=== PATIENT | male | born 1975 | race Hispanic/Latino ===

== ENCOUNTER 2021-07-27 18:39 | Emergency (ER) | payer SELFPAY ==
[~2021-07-27] VITALS: Ht 172.7 cm; Wt 102.1 kg
[2021-07-27] MEDS ORDERED: SODIUM CHLORIDE 0.9% 1000ML 1,000 ML IV ONE (19:45)
[2021-07-27] MEDS ORDERED: KETOROLAC TROMETHAMINE 30 MG/ML VIAL IV STA (19:51)
[2021-07-27 20:00] LABS: BASOPHILS # (AUTO) 0.1 (0.0-0.1); BASOPHILS % 0.4 % (0.0-1.0); EOSINOPHILS # (AUTO) 0.2 (0.0-0.4); EOSINOPHILS % 1.1 % (0.0-6.0); HEMATOCRIT 40.9 % (38.2-49.6); HEMOGLOBIN 13.8 g/dL (14.0-18.0); LYMPHOCYTES # (AUTO) 2.6 (1.0-3.2); LYMPHOCYTES % 16.5 % (18.0-39.1); MEAN CORPUSCULAR HGB CONC 33.7 g/dL (31-35); MEAN CORPUSCULAR VOLUME 88.9 fL (81-99); MONOCYTES # (AUTO) 1.3 (0.2-0.8); NEUTROPHILS # (AUTO) 11.6 (2.1-6.9); NEUTROPHILS % 73.4 % (38.7-80.0); PLATELET COUNT 288 x10e3/uL (140-360); RED CELL DISTRIBUTION WIDTH 12.7 % (11.7-14.4)
[2021-07-27 20:21] LABS: ALBUMIN 3.4 g/dL (3.5-5.0); ALBUMIN/GLOBULIN RATIO 0.7 (0.8-2.0); ANION GAP 12.4 mmol/L (8-16); CREATININE, SERUM 0.89 mg/dL (0.72-1.25); POTASSIUM 3.4 mmol/L (3.5-5.1)
[2021-07-27 21:01] LABS: CLARITY,URINE CLEAR (CLEAR); COLOR,URINE YELLOW (YELLOW); KETONES,URINE NEGATIVE (NEGATIVE); LEUKOCYTE ESTERASE ,URINE NEGATIVE (NEGATIVE); NITRITE,URINE NEGATIVE (NEGATIVE); PROTEIN,URINE DIPSTICK TRACE (NEGATIVE); URINE UROBILINOGEN 0.2 mg/dL (0.2 - 1)
[2021-07-27 21:14] LABS: BACTERIA,URINE RARE /HPF; EPITHELIAL CELLS,URINE FEW /LPF; MUCUS,URINE MANY (RARE); RBC,URINE 0-5 /HPF (0-5)
[2021-07-27] MEDS ORDERED: IOPAMIDOL 370 MG/ML 100 ML INFUS..BTL INJ ONE (21:36)
[2021-07-27 23:32] VITALS: BP 126/86
== END 2021-07-27 23:15 | disposition home or self-care (01) ==
LOC: ER 18:50
DX: M54.50 Low back pain, unspecified (principal); J18.9 Pneumonia, unspecified organism; J90 Pleural effusion, not elsewhere classified; K76.0 Fatty (change of) liver, not elsewhere classified; R91.8 Other nonspecific abnormal finding of lung field
CPT/HCPCS: 36415; 71260; 74176; 80053; 81001; 85025; 99284; J1885; J7030; Q9967

== ENCOUNTER 2021-07-29 11:17 | Inpatient (IN) | payer SELFPAY ==
[~2021-07-29] VITALS: Ht 172.7 cm; Wt 101.2 kg
[2021-07-29] MEDS ORDERED: Vancomycin IV 1 GM in SODIUM CHLORIDE 0.9% 250ML 250 ML IV STA (11:27)
[2021-07-29] MEDS ORDERED: SODIUM CHLORIDE 0.9% 500ML 500 ML IV STA (11:28)
[2021-07-29] MEDS ORDERED: KETOROLAC TROMETHAMINE 30 MG/ML VIAL IV STA (11:29)
[2021-07-29] MEDS ORDERED: SODIUM CHLORIDE 0.9% 1000ML 1,000 ML IV SCH ×3 (11:30→12:00)
[2021-07-29] MEDS ORDERED: ACETAMINOPHEN 325 MG TAB PO ONE (11:30)
[2021-07-29 11:39] LABS: BASOPHILS # (AUTO) 0.1 (0.0-0.1); BASOPHILS % 0.2 % (0.0-1.0); EOSINOPHILS # (AUTO) 0.1 (0.0-0.4); EOSINOPHILS % 0.3 % (0.0-6.0); HEMATOCRIT 44.5 % (38.2-49.6); HEMOGLOBIN 14.9 g/dL (14.0-18.0); LYMPHOCYTES # (AUTO) 1.9 (1.0-3.2); LYMPHOCYTES % 5.8 % (18.0-39.1); MEAN CORPUSCULAR HEMOGLOBIN 30.2 pg (28-32); MEAN CORPUSCULAR HGB CONC 33.5 g/dL (31-35); MEAN CORPUSCULAR VOLUME 90.1 fL (81-99); MONOCYTES # (AUTO) 1.4 (0.2-0.8); MONOCYTES % 4.5 % (4.4-11.3); NEUTROPHILS # (AUTO) 28.4 (2.1-6.9); NEUTROPHILS % 88.3 % (38.7-80.0); PLATELET COUNT 342 x10e3/uL (140-360); RED BLOOD COUNT 4.94 x10e6/uL (4.3-5.7); RED CELL DISTRIBUTION WIDTH 12.9 % (11.7-14.4)
[2021-07-29 12:10] LABS: LYMPHOCYTES % (MANUAL) 3 % (19-48); METAMYELOCYTES % (MANUAL) 1 % (0-0); MONOCYTES % (MANUAL) 2 % (3.4-9.0); NEUTROPHILS % (MANUAL) 92 % (40-74); PLATELET ESTIMATE ADEQUATE; PLATELET MORPHOLOGY COMMENT NORMAL; RBC MORPHOLOGY COMMENT NORMAL
[2021-07-29 12:13] LABS: ALBUMIN 3.2 g/dL (3.5-5.0); ALBUMIN/GLOBULIN RATIO 0.6 (0.8-2.0); ANION GAP 17.7 mmol/L (8-16); CALCIUM 9.2 mg/dL (8.4-10.2); CREATININE, SERUM 0.97 mg/dL (0.72-1.25); POTASSIUM 3.7 mmol/L (3.5-5.1)
[2021-07-29 12:50] VITALS: BP 130/77
[2021-07-29] MEDS ORDERED: METOPROLOL TARTRATE INJ 1 MG/ML VIAL IV PRN (15:15)
[2021-07-29] MEDS ORDERED: ACETAMINOPHEN 325 MG TAB PO PRN (15:15)
[2021-07-29] MEDS ORDERED: POLYETHYLENE GLYCOL 3350 17 GM PACK PO PRN (15:15)
[2021-07-29 15:29] VITALS: BP 122/69
[2021-07-29] MEDS ORDERED: PIPERACILLIN/TAZOBACTAM 4.5 GM in SODIUM CHLORIDE 0.9% 100 ML IV SCH (17:00)
[2021-07-29] MEDS: DOCUSATE SODIUM 100 MG CAP PO SCH (17:41)
[2021-07-29] MEDS: LACTATED RINGER'S 1,000 ML INJ SCH (17:41)
[2021-07-29] MEDS: FAMOTIDINE 20 MG TAB PO SCH (17:41)
[2021-07-29 20:00] VITALS: BP 121/78
[2021-07-29] MEDS: Morphine 4mg INJECTION 4 MG/ML INJ IV PRN (20:50)
[2021-07-29 21:00] VITALS: BP 121/78
[2021-07-29] MEDS ORDERED: TEMAZEPAM 7.5 MG CAP PO PRN (21:00)
[2021-07-29 23:56] LABS: CLARITY,URINE CLEAR (CLEAR); COLOR,URINE ORANGE (YELLOW); KETONES,URINE 1+ (NEGATIVE); LEUKOCYTE ESTERASE ,URINE NEGATIVE (NEGATIVE); NITRITE,URINE NEGATIVE (NEGATIVE); PROTEIN,URINE DIPSTICK 2+ (NEGATIVE); URINE UROBILINOGEN 1 mg/dL (0.2 - 1)
[2021-07-30 00:21] VITALS: BP 138/87
[2021-07-30 00:21] LABS: BACTERIA,URINE FEW /HPF; EPITHELIAL CELLS,URINE FEW /LPF
[2021-07-30] MEDS: ACETAMINOPHEN 325 MG TAB PO PRN ×3 (01:02→16:46)
[2021-07-30] MEDS: LACTATED RINGER'S 1,000 ML INJ SCH (04:05)
[2021-07-30 05:34] VITALS: BP 127/82
[2021-07-30] MEDS: Morphine 4mg INJECTION 4 MG/ML INJ IV PRN ×3 (06:21→21:15)
[2021-07-30 07:34] VITALS: BP 146/76
[2021-07-30 07:55] LABS: BASOPHILS # (AUTO) 0.1 (0.0-0.1); BASOPHILS % 0.3 % (0.0-1.0); EOSINOPHILS # (AUTO) 0.2 (0.0-0.4); EOSINOPHILS % 0.8 % (0.0-6.0); HEMATOCRIT 39.9 % (38.2-49.6); HEMOGLOBIN 13.1 g/dL (14.0-18.0); LYMPHOCYTES # (AUTO) 1.3 (1.0-3.2); LYMPHOCYTES % 4.3 % (18.0-39.1); MEAN CORPUSCULAR HEMOGLOBIN 30.2 pg (28-32); MEAN CORPUSCULAR HGB CONC 32.8 g/dL (31-35); MEAN CORPUSCULAR VOLUME 91.9 fL (81-99); MONOCYTES % 6.5 % (4.4-11.3); NEUTROPHILS # (AUTO) 26.3 (2.1-6.9); NEUTROPHILS % 86.2 % (38.7-80.0); PLATELET COUNT 257 x10e3/uL (140-360); RED BLOOD COUNT 4.34 x10e6/uL (4.3-5.7); RED CELL DISTRIBUTION WIDTH 12.9 % (11.7-14.4)
[2021-07-30 08:00] VITALS: BP 146/76
[2021-07-30 08:25] LABS: POTASSIUM 3.8 mmol/L (3.5-5.1)
[2021-07-30 08:26] LABS: ANION GAP 14.8 mmol/L (8-16); CALCIUM 8.2 mg/dL (8.4-10.2); CREATININE, SERUM 0.79 mg/dL (0.72-1.25)
[2021-07-30] MEDS: FAMOTIDINE 20 MG TAB PO SCH ×2 (08:30→16:44)
[2021-07-30] MEDS: DOCUSATE SODIUM 100 MG CAP PO SCH ×2 (08:30→16:45)
[2021-07-30 08:42] LABS: CHOL/HDL RATIO 4.5 (3.9-4.7); MAGNESIUM 1.6 MG/DL (1.3-2.1); PHOSPHORUS 2.1 MG/DL (2.3-4.7)
[2021-07-30 09:01] LABS: THYROID STIMULATING HORMONE 0.528 uIU/mL (0.350-4.940)
[2021-07-30] MEDS: ONDANSETRON HCL INJ 2MG/ML 2ML 2 MG/ML VIAL IV PRN ×2 (10:35→21:15)
[2021-07-30 10:46] LABS: LYMPHOCYTES % (MANUAL) 7 % (19-48); MONOCYTES % (MANUAL) 5 % (3.4-9.0); NEUTROPHILS % (MANUAL) 88 % (40-74); PLATELET ESTIMATE ADEQUATE; PLATELET MORPHOLOGY COMMENT NORMAL; RBC MORPHOLOGY COMMENT NORMAL
[2021-07-30] MEDS ORDERED: IOPAMIDOL 370 MG/ML 100 ML INFUS..BTL INJ ONE (11:05)
[2021-07-30 15:36] VITALS: BP 163/84
[2021-07-30] MEDS ORDERED: METOPROLOL TARTRATE INJ 1 MG/ML VIAL IV PRN (16:30)
[2021-07-30] MEDS: D5.45%NS/KCL 20MEQ 1,000 ML IV SCH (16:44)
[2021-07-30] MEDS: BENZONATATE 100 MG CAP PO PRN (16:46)
[2021-07-30] MEDS ORDERED: MAGNESIUM SULFATE 2GM/50ML 50 ML IV ONE (19:15)
[2021-07-30] MEDS ORDERED: SODIUM PHOSPHATE IN 0.9 % NACL 15 MMOL in SODIUM CHLORIDE 0.9% 250ML 250 ML IV ONE ×4 (19:15→22:15)
[2021-07-30 20:00] VITALS: BP 149/82
[2021-07-30] MEDS ORDERED: SODIUM CHLORIDE 0.9% 250ML 250 ML ONE (20:19)
[2021-07-31] VITALS (8 sets, daily range): BP systolic 135–165; BP diastolic 65–95
[2021-07-31] MEDS: ONDANSETRON HCL INJ 2MG/ML 2ML 2 MG/ML VIAL IV PRN ×2 (02:00→22:45)
[2021-07-31] MEDS: Morphine 4mg INJECTION 4 MG/ML INJ IV PRN ×2 (02:00→22:45)
[2021-07-31] MEDS: BENZONATATE 100 MG CAP PO PRN ×3 (04:23→22:45)
[2021-07-31] MEDS: ACETAMINOPHEN 325 MG TAB PO PRN ×3 (04:23→18:20)
[2021-07-31 05:32] LABS: HEMATOCRIT 41.5 % (38.2-49.6); HEMOGLOBIN 13.5 g/dL (14.0-18.0); MEAN CORPUSCULAR HEMOGLOBIN 29.8 pg (28-32); MEAN CORPUSCULAR HGB CONC 32.5 g/dL (31-35); MEAN CORPUSCULAR VOLUME 91.6 fL (81-99); PLATELET COUNT 280 x10e3/uL (140-360); RED BLOOD COUNT 4.53 x10e6/uL (4.3-5.7); RED CELL DISTRIBUTION WIDTH 13.1 % (11.7-14.4)
[2021-07-31 05:51] LABS: ALBUMIN 2.5 g/dL (3.5-5.0); ALBUMIN/GLOBULIN RATIO 0.5 (0.8-2.0); ANION GAP 14.6 mmol/L (8-16); CALCIUM 8.3 mg/dL (8.4-10.2); CREATININE, SERUM 0.91 mg/dL (0.72-1.25); MAGNESIUM 2.1 MG/DL (1.3-2.1); PHOSPHORUS 1.9 MG/DL (2.3-4.7); POTASSIUM 3.6 mmol/L (3.5-5.1)
[2021-07-31] MEDS: FAMOTIDINE 20 MG TAB PO SCH ×2 (08:00→16:45)
[2021-07-31 09:29] LABS: LYMPHOCYTES % (MANUAL) 4 % (19-48); MONOCYTES % (MANUAL) 9 % (3.4-9.0); NEUTROPHILS % (MANUAL) 87 % (40-74)
[2021-07-31 09:30] LABS: PLATELET ESTIMATE ADEQUATE; PLATELET MORPHOLOGY COMMENT NORMAL; RBC MORPHOLOGY COMMENT NORMAL
[2021-07-31] MEDS: DOCUSATE SODIUM 100 MG CAP PO SCH ×2 (09:34→16:45)
[2021-07-31] MEDS: D5.45%NS/KCL 20MEQ 1,000 ML IV SCH (10:00)
[2021-07-31] MEDS: Vancomycin IV 1.25 GM in SODIUM CHLORIDE 0.9% 250ML 250 ML IV SCH ×2 (11:15→23:00)
[2021-07-31] MEDS ORDERED: TEMAZEPAM 15 MG CAP PO PRN (12:00)
[2021-07-31 16:30] LABS: HIV 1&2 AB SCREEN NON-REACTIVE (NONREACTIVE)
[2021-08-01] VITALS (9 sets, daily range): BP systolic 114–154; BP diastolic 54–91
[2021-08-01] MEDS: ACETAMINOPHEN 325 MG TAB PO PRN ×2 (05:30→16:18)
[2021-08-01 05:46] LABS: BASOPHILS # (AUTO) 0.1 (0.0-0.1); BASOPHILS % 0.3 % (0.0-1.0); EOSINOPHILS # (AUTO) 0.4 (0.0-0.4); EOSINOPHILS % 2.1 % (0.0-6.0); HEMATOCRIT 37.5 % (38.2-49.6); HEMOGLOBIN 12.4 g/dL (14.0-18.0); LYMPHOCYTES % 4.9 % (18.0-39.1); MEAN CORPUSCULAR HEMOGLOBIN 29.8 pg (28-32); MEAN CORPUSCULAR HGB CONC 33.1 g/dL (31-35); MEAN CORPUSCULAR VOLUME 90.1 fL (81-99); MONOCYTES # (AUTO) 1.6 (0.2-0.8); MONOCYTES % 7.8 % (4.4-11.3); NEUTROPHILS # (AUTO) 17.7 (2.1-6.9); NEUTROPHILS % 83.5 % (38.7-80.0); PLATELET COUNT 308 x10e3/uL (140-360); RED BLOOD COUNT 4.16 x10e6/uL (4.3-5.7); RED CELL DISTRIBUTION WIDTH 13.2 % (11.7-14.4)
[2021-08-01 06:05] LABS: ANION GAP 12.7 mmol/L (8-16); CALCIUM 8.7 mg/dL (8.4-10.2); CREATININE, SERUM 0.91 mg/dL (0.72-1.25); POTASSIUM 3.7 mmol/L (3.5-5.1)
[2021-08-01] MEDS: FAMOTIDINE 20 MG TAB PO SCH ×2 (07:30→17:03)
[2021-08-01] MEDS: DOCUSATE SODIUM 100 MG CAP PO SCH ×2 (08:28→17:03)
[2021-08-01] MEDS: Vancomycin IV 1.25 GM in SODIUM CHLORIDE 0.9% 250ML 250 ML IV SCH ×2 (10:24→23:18)
[2021-08-01 10:37] LABS: INR 1.17; PROTHROMBIN TIME 15.9 seconds (11.9-14.5)
[2021-08-01 15:39] LABS: BODY FLUID APPEARANCE SL.CLOUDY; BODY FLUID COLOR YELLOW; BODY FLUID TYPE PLEURAL
[2021-08-01 16:15] LABS: RBC,BODY FLUID 1000 cells/uL; WBC,BODY FLUID 312 cells/uL
[2021-08-01 19:27] LABS: LYMPHOCYTES,BODY FLUID 8 %; MONO/MACROPHG,BODY FLUID 3 %; NEUTROPHILS,BODY FLUID 89 %
[2021-08-02] VITALS (8 sets, daily range): BP systolic 122–137; BP diastolic 70–81
[2021-08-02] MEDS ORDERED: SODIUM CHLORIDE 0.9% 250ML 250 ML ONE ×2 (06:12→21:52)
[2021-08-02 06:34] LABS: BASOPHILS # (AUTO) 0.1 (0.0-0.1); BASOPHILS % 0.3 % (0.0-1.0); EOSINOPHILS # (AUTO) 0.4 (0.0-0.4); EOSINOPHILS % 2.3 % (0.0-6.0); HEMATOCRIT 35.3 % (38.2-49.6); HEMOGLOBIN 11.6 g/dL (14.0-18.0); LYMPHOCYTES # (AUTO) 1.4 (1.0-3.2); LYMPHOCYTES % 8.6 % (18.0-39.1); MEAN CORPUSCULAR HEMOGLOBIN 29.4 pg (28-32); MEAN CORPUSCULAR HGB CONC 32.9 g/dL (31-35); MEAN CORPUSCULAR VOLUME 89.6 fL (81-99); MONOCYTES # (AUTO) 1.4 (0.2-0.8); MONOCYTES % 8.8 % (4.4-11.3); NEUTROPHILS # (AUTO) 12.4 (2.1-6.9); NEUTROPHILS % 79.1 % (38.7-80.0); PLATELET COUNT 318 x10e3/uL (140-360); RED BLOOD COUNT 3.94 x10e6/uL (4.3-5.7); RED CELL DISTRIBUTION WIDTH 13.2 % (11.7-14.4)
[2021-08-02 07:00] LABS: ANION GAP 13.2 mmol/L (8-16); CALCIUM 8.4 mg/dL (8.4-10.2); CREATININE, SERUM 0.83 mg/dL (0.72-1.25); MAGNESIUM 2.1 MG/DL (1.3-2.1); PHOSPHORUS 2.9 MG/DL (2.3-4.7); POTASSIUM 3.2 mmol/L (3.5-5.1)
[2021-08-02] MEDS: FAMOTIDINE 20 MG TAB PO SCH ×2 (07:30→16:36)
[2021-08-02] MEDS: Morphine 4mg INJECTION 4 MG/ML INJ IV PRN ×2 (07:35→22:15)
[2021-08-02] MEDS ORDERED: POTASSIUM CHLORIDE 20 MEQ TAB CR PO ONE (08:00)
[2021-08-02] MEDS: DOCUSATE SODIUM 100 MG CAP PO SCH ×2 (09:19→16:36)
[2021-08-02] MEDS: BENZONATATE 100 MG CAP PO PRN (09:26)
[2021-08-02] MEDS: Vancomycin IV 1.25 GM in SODIUM CHLORIDE 0.9% 250ML 250 ML IV SCH ×2 (10:15→22:15)
[2021-08-02] MEDS: GUAIFENESIN 600MG/DEXTROMETHORPHAN 30MG TABSR PO PRN (13:11)
[2021-08-02] MEDS: ACETAMINOPHEN 325 MG TAB PO PRN (20:14)
[2021-08-03] VITALS (21 sets, daily range): BP systolic 102–174; BP diastolic 67–96
[2021-08-03] MEDS: GUAIFENESIN 600MG/DEXTROMETHORPHAN 30MG TABSR PO PRN (01:17)
[2021-08-03 06:01] LABS: BASOPHILS # (AUTO) 0.1 (0.0-0.1); BASOPHILS % 0.4 % (0.0-1.0); EOSINOPHILS # (AUTO) 0.4 (0.0-0.4); EOSINOPHILS % 2.3 % (0.0-6.0); HEMATOCRIT 36.2 % (38.2-49.6); LYMPHOCYTES # (AUTO) 1.2 (1.0-3.2); LYMPHOCYTES % 7.6 % (18.0-39.1); MEAN CORPUSCULAR HEMOGLOBIN 29.5 pg (28-32); MEAN CORPUSCULAR HGB CONC 33.1 g/dL (31-35); MEAN CORPUSCULAR VOLUME 88.9 fL (81-99); MONOCYTES # (AUTO) 1.4 (0.2-0.8); MONOCYTES % 8.3 % (4.4-11.3); NEUTROPHILS % 79.3 % (38.7-80.0); PLATELET COUNT 339 x10e3/uL (140-360); RED BLOOD COUNT 4.07 x10e6/uL (4.3-5.7); RED CELL DISTRIBUTION WIDTH 13.2 % (11.7-14.4)
[2021-08-03 06:21] LABS: ANION GAP 16.6 mmol/L (8-16); CALCIUM 8.7 mg/dL (8.4-10.2); CREATININE, SERUM 0.79 mg/dL (0.72-1.25); POTASSIUM 3.6 mmol/L (3.5-5.1)
[2021-08-03] MEDS: FAMOTIDINE 20 MG TAB PO SCH ×2 (07:30→18:42)
[2021-08-03] MEDS: DOCUSATE SODIUM 100 MG CAP PO SCH ×2 (09:00→18:42)
[2021-08-03] MEDS: Vancomycin IV 1.25 GM in SODIUM CHLORIDE 0.9% 250ML 250 ML IV SCH (10:15)
[2021-08-03] MEDS ORDERED: HEPARIN SOD/SOD CHLORIDE 1,000 ML ONE (10:23)
[2021-08-03] MEDS ORDERED: ONDANSETRON HCL 4 MG ORAL DISINTEGRATING TAB PO PRN (12:30)
[2021-08-03] MEDS ORDERED: BUPIVACAINE 0.5%/EPI 30 ML SDV INJ ONE (14:06)
[2021-08-03] MEDS ORDERED: PROPOFOL IV EMULSION 10 MG/ML 20 ML VIAL ONE (15:23)
[2021-08-03] MEDS ORDERED: DEXAMETHASONE SOD PHOS INJ 4 MG/ML SDV ONE (15:23)
[2021-08-03] MEDS ORDERED: POVIDONE IODINE 0.05% 0.05 % ML PO ONE (15:23)
[2021-08-03] MEDS ORDERED: ROCURONIUM BROMIDE 10 MG/ML 5ML VIAL IV ONE (15:23)
[2021-08-03] MEDS ORDERED: SUGAMMADEX SODIUM 200 MG/2 ML VIAL IV ONE (15:23)
[2021-08-03] MEDS ORDERED: ACETAMINOPHEN 1000 MG/100 ML IV ONE (15:23)
[2021-08-03] MEDS ORDERED: SEVOFLURANE INHAL SOLN 250 ML PEN BTL ONE (15:23)
[2021-08-03] MEDS ORDERED: ONDANSETRON HCL INJ 2MG/ML 2ML 2 MG/ML VIAL ONE (15:23)
[2021-08-03] MEDS ORDERED: LIDOCAINE HCL 2% LOCAL INJ 5 ML SDV VIAL INJ ONE (15:23)
[2021-08-03] MEDS ORDERED: FENTANYL CITRATE/PF 100MCG/2 ML INJ ONE (16:04)
[2021-08-03] MEDS ORDERED: MIDAZOLAM HCL 2 MG/2 ML VIAL ONE (16:04)
[2021-08-03] MEDS ORDERED: HYDROMORPHONE 1MG/1ML INJ IV PRN (17:15)
[2021-08-03] MEDS ORDERED: KETOROLAC TROMETHAMINE 30 MG/ML VIAL IV PRN (17:15)
[2021-08-03] MEDS: SODIUM CHLORIDE 0.9% 1000ML 1,000 ML IV SCH (18:42)
[2021-08-03] MEDS: HYDROCODONE/APAP 7.5MG-325MG 1 EA TAB PO PRN (19:41)
[2021-08-03] MEDS: Vancomycin IV 1.5 GM in SODIUM CHLORIDE 0.9% 250ML 300 ML IV SCH (20:30)
[2021-08-04] VITALS (21 sets, daily range): BP systolic 90–172; BP diastolic 48–108
[2021-08-04] MEDS: SODIUM CHLORIDE 0.9% 1000ML 1,000 ML IV SCH ×2 (03:30→17:10)
[2021-08-04] MEDS: HYDROCODONE/APAP 7.5MG-325MG 1 EA TAB PO PRN ×4 (04:35→23:20)
[2021-08-04 05:05] LABS: BASOPHILS % 0.2 % (0.0-1.0); HEMATOCRIT 29.1 % (38.2-49.6); HEMOGLOBIN 9.3 g/dL (14.0-18.0); LYMPHOCYTES # (AUTO) 0.9 (1.0-3.2); LYMPHOCYTES % 6.8 % (18.0-39.1); MEAN CORPUSCULAR HEMOGLOBIN 29.6 pg (28-32); MEAN CORPUSCULAR VOLUME 92.7 fL (81-99); MONOCYTES # (AUTO) 1.2 (0.2-0.8); MONOCYTES % 8.7 % (4.4-11.3); NEUTROPHILS # (AUTO) 11.2 (2.1-6.9); NEUTROPHILS % 82.1 % (38.7-80.0); PLATELET COUNT 295 x10e3/uL (140-360); RED BLOOD COUNT 3.14 x10e6/uL (4.3-5.7); RED CELL DISTRIBUTION WIDTH 13.4 % (11.7-14.4)
[2021-08-04 05:26] LABS: ANION GAP 12.5 mmol/L (8-16); CALCIUM 7.3 mg/dL (8.4-10.2); CREATININE, SERUM 0.64 mg/dL (0.72-1.25); POTASSIUM 3.5 mmol/L (3.5-5.1)
[2021-08-04] MEDS: FAMOTIDINE 20 MG TAB PO SCH ×2 (07:40→17:10)
[2021-08-04] MEDS: DOCUSATE SODIUM 100 MG CAP PO SCH ×2 (08:49→17:10)
[2021-08-04] MEDS ORDERED: HYDROCODONE/APAP 7.5MG-325MG 1 EA TAB PO PRN (09:45)
[2021-08-04] MEDS: Vancomycin IV 1.5 GM in SODIUM CHLORIDE 0.9% 250ML 300 ML IV SCH ×2 (10:10→21:37)
[2021-08-04] MEDS: ALBUTEROL SULF 0.083% NEB SOLN 3 ML NEB NEB SCH (12:45)
[2021-08-04] MEDS: ACETYLCYSTEINE 20% INHAL SOLN 30 ML VIAL INH SCH ×2 (12:45→19:00)
[2021-08-05] VITALS (7 sets, daily range): BP systolic 130–151; BP diastolic 68–78
[2021-08-05] MEDS: ACETYLCYSTEINE 20% INHAL SOLN 30 ML VIAL INH SCH ×4 (01:00→19:15)
[2021-08-05] MEDS: ALBUTEROL SULF 0.083% NEB SOLN 3 ML NEB NEB SCH ×3 (07:00→19:15)
[2021-08-05 08:49] LABS: BASOPHILS # (AUTO) 0.1 (0.0-0.1); BASOPHILS % 0.4 % (0.0-1.0); EOSINOPHILS # (AUTO) 0.4 (0.0-0.4); EOSINOPHILS % 2.5 % (0.0-6.0); HEMATOCRIT 35.6 % (38.2-49.6); HEMOGLOBIN 11.5 g/dL (14.0-18.0); LYMPHOCYTES # (AUTO) 1.8 (1.0-3.2); LYMPHOCYTES % 13.3 % (18.0-39.1); MEAN CORPUSCULAR HEMOGLOBIN 29.8 pg (28-32); MEAN CORPUSCULAR HGB CONC 32.3 g/dL (31-35); MEAN CORPUSCULAR VOLUME 92.2 fL (81-99); MONOCYTES # (AUTO) 0.7 (0.2-0.8); MONOCYTES % 5.2 % (4.4-11.3); NEUTROPHILS # (AUTO) 10.3 (2.1-6.9); NEUTROPHILS % 74.4 % (38.7-80.0); PLATELET COUNT 354 x10e3/uL (140-360); RED BLOOD COUNT 3.86 x10e6/uL (4.3-5.7); RED CELL DISTRIBUTION WIDTH 13.2 % (11.7-14.4)
[2021-08-05] MEDS: DOCUSATE SODIUM 100 MG CAP PO SCH ×2 (09:03→17:51)
[2021-08-05] MEDS: FAMOTIDINE 20 MG TAB PO SCH ×2 (09:03→17:51)
[2021-08-05 09:12] LABS: ANION GAP 14.7 mmol/L (8-16); CALCIUM 8.3 mg/dL (8.4-10.2); CREATININE, SERUM 0.76 mg/dL (0.72-1.25); POTASSIUM 3.7 mmol/L (3.5-5.1)
[2021-08-05] MEDS: Vancomycin IV 1.5 GM in SODIUM CHLORIDE 0.9% 250ML 300 ML IV SCH ×2 (10:00→21:45)
[2021-08-06] VITALS (8 sets, daily range): BP systolic 132–143; BP diastolic 68–88
[2021-08-06] MEDS: ALBUTEROL SULF 0.083% NEB SOLN 3 ML NEB NEB SCH ×3 (00:50→12:56)
[2021-08-06] MEDS: ACETYLCYSTEINE 20% INHAL SOLN 30 ML VIAL INH SCH ×3 (00:50→12:56)
[2021-08-06 05:09] LABS: BASOPHILS # (AUTO) 0.1 (0.0-0.1); BASOPHILS % 0.5 % (0.0-1.0); EOSINOPHILS # (AUTO) 0.5 (0.0-0.4); EOSINOPHILS % 3.9 % (0.0-6.0); HEMATOCRIT 32.8 % (38.2-49.6); HEMOGLOBIN 10.7 g/dL (14.0-18.0); LYMPHOCYTES # (AUTO) 1.9 (1.0-3.2); LYMPHOCYTES % 16.1 % (18.0-39.1); MEAN CORPUSCULAR HEMOGLOBIN 29.6 pg (28-32); MEAN CORPUSCULAR HGB CONC 32.6 g/dL (31-35); MEAN CORPUSCULAR VOLUME 90.9 fL (81-99); MONOCYTES # (AUTO) 0.7 (0.2-0.8); MONOCYTES % 5.4 % (4.4-11.3); NEUTROPHILS # (AUTO) 8.3 (2.1-6.9); NEUTROPHILS % 69.2 % (38.7-80.0); PLATELET COUNT 363 x10e3/uL (140-360); RED BLOOD COUNT 3.61 x10e6/uL (4.3-5.7); RED CELL DISTRIBUTION WIDTH 13.2 % (11.7-14.4)
[2021-08-06 05:29] LABS: ANION GAP 14.4 mmol/L (8-16); CREATININE, SERUM 0.78 mg/dL (0.72-1.25); POTASSIUM 3.4 mmol/L (3.5-5.1)
[2021-08-06] MEDS: Vancomycin IV 1.5 GM in SODIUM CHLORIDE 0.9% 250ML 300 ML IV SCH ×2 (08:31→20:14)
[2021-08-06] MEDS: FAMOTIDINE 20 MG TAB PO SCH ×2 (08:31→16:00)
[2021-08-06] MEDS: DOCUSATE SODIUM 100 MG CAP PO SCH ×2 (08:31→16:00)
[2021-08-06] MEDS ORDERED: POTASSIUM CHLORIDE 20 MEQ TAB CR PO ONE (19:50)
[2021-08-07] VITALS (9 sets, daily range): BP systolic 118–130; BP diastolic 73–90
[2021-08-07] MEDS: FAMOTIDINE 20 MG TAB PO SCH ×2 (09:02→16:12)
[2021-08-07] MEDS: Vancomycin IV 1.5 GM in SODIUM CHLORIDE 0.9% 250ML 300 ML IV SCH (09:03)
[2021-08-07] MEDS: DOCUSATE SODIUM 100 MG CAP PO SCH ×2 (09:03→16:12)
[2021-08-07 09:06] LABS: BASOPHILS # (AUTO) 0.1 (0.0-0.1); BASOPHILS % 0.7 % (0.0-1.0); EOSINOPHILS # (AUTO) 0.7 (0.0-0.4); EOSINOPHILS % 4.2 % (0.0-6.0); HEMATOCRIT 37.5 % (38.2-49.6); LYMPHOCYTES # (AUTO) 2.3 (1.0-3.2); MEAN CORPUSCULAR HEMOGLOBIN 29.3 pg (28-32); MEAN CORPUSCULAR VOLUME 91.5 fL (81-99); MONOCYTES # (AUTO) 0.7 (0.2-0.8); MONOCYTES % 4.1 % (4.4-11.3); NEUTROPHILS # (AUTO) 11.9 (2.1-6.9); NEUTROPHILS % 71.8 % (38.7-80.0); PLATELET COUNT 484 x10e3/uL (140-360); RED CELL DISTRIBUTION WIDTH 13.1 % (11.7-14.4)
[2021-08-07 09:58] LABS: ANION GAP 16.2 mmol/L (8-16); CALCIUM 8.8 mg/dL (8.4-10.2); CREATININE, SERUM 0.9 mg/dL (0.72-1.25); MAGNESIUM 2.2 MG/DL (1.3-2.1); PHOSPHORUS 3.6 MG/DL (2.3-4.7); POTASSIUM 4.2 mmol/L (3.5-5.1)
[2021-08-07] MEDS: CEFTRIAXONE 2 GM in SODIUM CHLORIDE 0.9% 100 ML IV SCH (14:26)
[2021-08-08] VITALS (7 sets, daily range): BP systolic 119–132; BP diastolic 75–89
[2021-08-08 04:44] LABS: BASOPHILS # (AUTO) 0.1 (0.0-0.1); BASOPHILS % 0.6 % (0.0-1.0); EOSINOPHILS # (AUTO) 0.8 (0.0-0.4); EOSINOPHILS % 4.2 % (0.0-6.0); HEMATOCRIT 40.5 % (38.2-49.6); HEMOGLOBIN 13.2 g/dL (14.0-18.0); LYMPHOCYTES # (AUTO) 3.2 (1.0-3.2); LYMPHOCYTES % 16.9 % (18.0-39.1); MEAN CORPUSCULAR HEMOGLOBIN 29.7 pg (28-32); MEAN CORPUSCULAR HGB CONC 32.6 g/dL (31-35); MONOCYTES % 5.2 % (4.4-11.3); NEUTROPHILS # (AUTO) 12.7 (2.1-6.9); NEUTROPHILS % 68.4 % (38.7-80.0); PLATELET COUNT 568 x10e3/uL (140-360); RED BLOOD COUNT 4.45 x10e6/uL (4.3-5.7); RED CELL DISTRIBUTION WIDTH 12.9 % (11.7-14.4)
[2021-08-08] MEDS: FAMOTIDINE 20 MG TAB PO SCH ×2 (07:30→16:30)
[2021-08-08] MEDS: CEFTRIAXONE 2 GM in SODIUM CHLORIDE 0.9% 100 ML IV SCH (09:00)
[2021-08-08] MEDS: DOCUSATE SODIUM 100 MG CAP PO SCH ×2 (09:00→17:00)
[2021-08-09 01:06] VITALS: BP 126/87
[2021-08-09 01:38] VITALS: BP 126/87
[2021-08-09 06:37] LABS: BASOPHILS # (AUTO) 0.1 (0.0-0.1); BASOPHILS % 0.7 % (0.0-1.0); EOSINOPHILS # (AUTO) 0.9 (0.0-0.4); EOSINOPHILS % 4.8 % (0.0-6.0); HEMATOCRIT 39.6 % (38.2-49.6); LYMPHOCYTES # (AUTO) 3.5 (1.0-3.2); LYMPHOCYTES % 19.5 % (18.0-39.1); MEAN CORPUSCULAR HEMOGLOBIN 29.4 pg (28-32); MEAN CORPUSCULAR HGB CONC 32.8 g/dL (31-35); MEAN CORPUSCULAR VOLUME 89.6 fL (81-99); MONOCYTES % 5.4 % (4.4-11.3); NEUTROPHILS # (AUTO) 11.6 (2.1-6.9); NEUTROPHILS % 65.3 % (38.7-80.0); PLATELET COUNT 554 x10e3/uL (140-360); RED BLOOD COUNT 4.42 x10e6/uL (4.3-5.7); RED CELL DISTRIBUTION WIDTH 12.6 % (11.7-14.4)
[2021-08-09 07:13] LABS: ANION GAP 17.4 mmol/L (8-16); CALCIUM 9.2 mg/dL (8.4-10.2); CREATININE, SERUM 0.89 mg/dL (0.72-1.25); POTASSIUM 4.4 mmol/L (3.5-5.1)
[2021-08-09] MEDS: FAMOTIDINE 20 MG TAB PO SCH (07:30)
[2021-08-09 07:35] VITALS: BP 129/74
[2021-08-09] MEDS: DOCUSATE SODIUM 100 MG CAP PO SCH (09:00)
[2021-08-09] MEDS: CEFTRIAXONE 2 GM in SODIUM CHLORIDE 0.9% 100 ML IV SCH (09:00)
[2021-08-09 09:16] VITALS: BP 129/74
[2021-08-09 11:48] VITALS: BP 125/81
[2021-08-09] MEDS ORDERED: HYDROCODON-ACE1 EA12 PO (14:26)
[2021-08-09] MEDS ORDERED: FAMOTIDINE20 MG PO (14:26)
[2021-08-09] MEDS ORDERED: MUCINEX DM ER1 EACH PO (14:26)
[2021-08-09] MEDS ORDERED: Docusate Sodium PO (14:26)
[2021-08-09] MEDS ORDERED: ONDANSETRON ODT4 MG PO (14:26)
[2021-08-09] MEDS ORDERED: Benzonatate PO (14:26)
[2021-08-09] MEDS ORDERED: Augmentin PO (14:34)
== END 2021-08-09 16:23 | disposition home or self-care (01) | DRG 853 ==
LOC: ER 11:20 → ERHOLD 11:46 → MED/SURG2 12:22 → OBSVTOIN 07-30 07:43 → ICU 08-03 17:45 → MED/SURG 08-04 18:14
PROVIDERS: ADMIT Internal Medicine; ATTEND Internal Medicine
PROC: 3E03329 Introduction of Other Anti-infective into Peripheral Vein, Percutaneous Approach (ICD-10-PCS; principal; 2021-07-29)
PROC: 02HV33Z Insertion of Infusion Device into Superior Vena Cava, Percutaneous Approach (ICD-10-PCS; 2021-07-31)
PROC: 0W993ZZ Drainage of Right Pleural Cavity, Percutaneous Approach (ICD-10-PCS; 2021-08-01)
PROC: 0W9940Z Drainage of Right Pleural Cavity with Drainage Device, Percutaneous Endoscopic Approach (ICD-10-PCS; 2021-08-03)
PROC: 0BCF4ZZ Extirpation of Matter from Right Lower Lung Lobe, Percutaneous Endoscopic Approach (ICD-10-PCS; 2021-08-03)
PROC: 0BC Respiratory System, Extirpation (ICD-10-PCS; 2021-08-03)
PROC: 0BBN4ZZ Excision of Right Pleura, Percutaneous Endoscopic Approach (ICD-10-PCS; 2021-08-03)
DX: A41.9 Sepsis, unspecified organism (principal); J85.1 Abscess of lung with pneumonia; J86.9 Pyothorax without fistula; J96.01 Acute respiratory failure with hypoxia; J90 Pleural effusion, not elsewhere classified; E66.9 Obesity, unspecified; Z68.33 Body mass index [BMI] 33.0-33.9, adult; Z87.442 Personal history of urinary calculi; Z87.440 Personal history of urinary (tract) infections; Z91.013 Allergy to seafood; Z20.822 Contact with and (suspected) exposure to COVID-19; Z28.310 Unvaccinated for COVID-19
CPT/HCPCS: 32555; 36415; 36569; 71045; 71046; 71260; 74177; 74470; 80048; 80053; 80061; 80202; 81001; 83036; 83605; 83615; 83735; 84100; 84157; 84443; 85007; 85025; 85027; 85610; 86631; 86738; 86850; 86900; 87040; 87070; 87205; 87390; 87449; 88305; 89051; 93005; 94640; 94799; 96361; 99284; C1713; C1729; G0378; G0433; G0435; J0456; J0696; J1100; J1885; J2001; J2250; J2270; J2405; J2543; J3010; J3370; J3475; J7030; J7040; J7050; J7121; Q9967

== ENCOUNTER → 2022-08-19 | Outpatient (CLI) | payer OTHER ==
[~2022-08-19] MED LIST: Augmentin PO; Benzonatate PO; Docusate Sodium PO; FAMOTIDINE20 MG PO; HYDROCODON-ACE1 EA12 PO; MUCINEX DM ER1 EACH PO; ONDANSETRON ODT4 MG PO
== END ==
LOC: RAD 10:13
PROVIDERS: ATTEND Surgery
DX: Z09 Encounter for follow-up examination after completed treatment for conditions other than malignant neoplasm (principal); Z87.09 Personal history of other diseases of the respiratory system
CPT/HCPCS: 71046